=== PATIENT | female | born 1995 | race Caucasian/White ===

== ENCOUNTER 2016-06-11 15:28 | Emergency (ER) | payer OTHER ==
[~2016-06-11] VITALS: Ht 157.5 cm; Wt 52.3 kg
[2016-06-11 15:37] VITALS: BP 122/80; PULSE 78; RESP 16; O2SAT 100
--- NOTE | 2016-06-11 16:01 | ED.REPORT ---
HPI-Seizure Date of Service Jun 11, 2016 ED Provider: Idris Gallardo MD Pt is a 20 y/o female presenting to ED with her mother due to possible seizure onset earlier today. The patient states that she had a grand-mal seizure today, and has 2 episodes similar to this previously. She has no formal diagnosis of seizure disorder. 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 Before she was about to get on stage, she developed muscle shaking, mild headache, dry mouth. Pt denies any change in LOC , confusion, dysuria, urinary frequency. She is currently on her menstrual period. Nursing Notes Stated Complaint: SEIZURE Chief Complaint: General Complaint Nursing Notes Reviewed: Yes Allergies: Coded Allergies: TAPE (Verified Allergy, Intermediate, 06/11/16) Penicillins (Verified Allergy, Unknown, 06/11/16) Uncoded Allergies: RED DYE#40 (Allergy, Intermediate, 06/11/16) General Time Seen by Provider: 16:03 Chief Complaint Chief Complaint: Seizure, generalized (reported) Hx Obtained From: Patient Arrived By: Walk-in Onset Occurred: 1 - 4 hours ago Symptom Duration: 1 - 15 minutes Progression Since Onset: Resolved Location: : Chest Quality: Pleuritic Severity: Current: No pain currently Severity: Maximum: Moderate Similar Sx Previous: Yes Past Medical History Past Medical History She reports prior episodes of what she states are grand mal seizures but there is no formal diagnosis of seizure disorder Past Surgical History None reported Smoking History Unknown if Ever Smoker Ambulatory Status Independent Review of Systems Constitutional: Denies: Chills, Fever Respiratory: Reports: Pleuritic pain, Shortness of breath, Denies: Non-productive cough Cardiovascular: Reports: Chest pain Neurologic: Reports: Headache, Shaking, Denies: Change LOC, Confusion, Syncope Complete sys rev & neg: except as marked. Psychiatric: Reports: Anxiety, Stress, Denies: Confusion Physical Exam Initial Vital Signs Vital Signs (First) Date Time Temp Pulse Resp B/P Pulse Ox O2 Delivery O2 Flow Rate FiO2 06/11/16 15:37 37.0 78 16 122/80 100 Room Air Initial VS: Reviewed, Vital signs normal Head / Eyes: Atraumatic, Normocephalic, PERRL ENT: Mucous membranes moist, Conjunctiva normal, No scleral icterus Abdomen / GI: Soft, Non-tender Extremities: Vascular intact, Neuro intact, No swelling, No tenderness Skin: Warm, Dry, No cyanosis Psychiatric: Mood/affect normal, Behavior normal, Normal thought content General/Constitutional: Awake, Alert, No acute distress, Well appearing, Cooperative, Not toxic appearing Neck: Atraumatic, Supple, No meningismus, Full range of motion Respiratory / Chest: Atraumatic, Breath sounds NL, Breath sounds = bilat, No respiratory distress, No rales, No rhonchi, No wheezing, No retractions, No stridor, No chest tenderness, No chest wall deformity, No crepitus Cardiovascular: Heart rate NL, Regular rhythm, Heart sounds NL, No gallop, No murmurs, No rubs, Cap refill not delayed, Peripheral circulation NL Neurologic: Oriented X3, Speech NL, No motor deficits, No sensory deficits, CN II - XII intact, Cerebellar NL, Memory NL Re-Eval/Medical Decision Med Decision/Clinical Course The patient is a 20-year-old female who presents to the emergency department with her mother due to concern that she may have had a seizure. She reports an event where she was anxious and started breathing quickly resulting in tingling in her figure tips and twitching of her arms and legs. She never expressed any loss of consciousness or postictal state. She takes no medications and has never been diagnosed with seizure disorder. Here in the emergency department she is afebrile stable vital signs and in no apparent distress. She is appears no traumatic injuries. She is without meningismus, fever or signs suggestive of meningitis or encephalitis. The description of this event is not consistent with seizure. I suspect the patient may have expressed panic and anxiety and she reports a high degree of stress currently. I suspect that she was probably hyperventilating and experienced tingling as a result thereof. Given the history and physical examination I do not feel that further workup with neuro imaging or laboratory studies immediately indicated. She will follow-up with her primary care physician for further discussion and workup. Follow-up and return precautions were reviewed in detail with the patient as well as her mother and they verbalized understanding and agreement with the plan. She was discharged in good condition. Re-Evaluation/Progress : Time of Eval: 17:05 Re-Evaluation/Progress Note: Pt rechecked. Informed pt of plan for treatment. Pt understands and agrees with plan for treatment. F/U instructions and RTER warnings given. All questions addressed. Counseled Regarding: Diagnosis, Need for follow-up, When/why to return to ED Discharge & Departure Impression: Primary Impression: Stress reaction Additional Impressions: Tingling in extremities Anxiety Disposition: Home Discharge Condition All VS Reviewed: Yes Condition: Stable Patient Instructions: Non-epileptic Seizures (ED), Stress (ED) Additional Instructions: Thank you for seeking care at the emergency room. It is difficult for us to make definitive diagnoses in the ED but we believe that you are experiencing a reaction related to stress and anxiety Our primary goal today in the ED was to evaluate you for any life-threatening conditions. Your evaluation was reassuring. Your interview today does not point towards a seizure, which is usually associated with loss of consciousness and confusion after the episode. You should follow-up with a primary doctor in the next week. The residency clinic would be happy to see you. Further seizure-activity workup may be considered at that time. You should return to the ED immediately if you develop loss of consciousness, confusion, one-sided numbness or weakness, severe headache, fevers, vomiting, shortness of breath, chest pain, lightheadedness, weakness or any other concerning signs or symptoms. Thank you for letting us partake in your care today. Referrals: [facility] Scribe Attestation Portions of this note were transcribed by Cj Garcia. I, Dr. Gallardo personally performed the history, physical exam and medical decision-making; I reviewed and confirmed the accuracy of the information in the transcribed note. Signed by Shae Alfred, 06/11/16 - 1700 Idris Gallardo MD Jun 11, 2016 16:01 JC GARCIA Jun 11, 2016 16:02
[2016-06-11 17:37] VITALS: BP 118/78; PULSE 80; RESP 16; O2SAT 100
== END 2016-06-11 17:38 | disposition home or self-care (01) ==
LOC: SED 15:28
DX: F43.9 Reaction to severe stress, unspecified (principal); R20.2 Paresthesia of skin; F41.9 Anxiety disorder, unspecified; R07.81 Pleurodynia; R06.82 Tachypnea, not elsewhere classified; R51 Headache; R68.2 Dry mouth, unspecified; Z88.0 Allergy status to penicillin